=== PATIENT | male | born 1980 | race Caucasian/White ===

== ENCOUNTER → 2020-07-03 | Outpatient (CLI) | payer OTHER | LOC: SC 19:30 | PROVIDERS: ATTEND Internal Medicine Pulmonary Disease | DX: G47.33 Obstructive sleep apnea (adult) (pediatric) (principal) | CPT/HCPCS: 95806 ==

== ENCOUNTER 2020-07-19 16:45 | Outpatient (CLI) | payer OTHER ==
--- NOTE | 2020-07-19 17:19 | SLEEP CARE CONSULTATION ---
Information from patient questionnaire entered by Phong Varma. I have reviewed and concur with the information entered by Phong Varma. This document represents the service I personally performed and the decisions made by , Magda Jay ARNP. History of Present Illness Service Date and Time: 07/19/2020 1645 Initial [place] Sleepiness Scale score: 6 (in 2019) Additional HPI information: TELLY AYALA returns with spouse for follow up and results of the recently performed home sleep study. His HST showed he has mild obstructive sleep apnea with an average AHI of 7.7 and a michael oxygen saturation of 83%. His supine AHI was 9.2 and his non-supine AHI was 5.2. I explained the pathophysiology behind obstructive sleep apnea. We then spent quite a bit of time discussing different treatment options. For mild obstructive sleep apnea, surgery and oral appliance are alternatives to nasal CPAP therapy but in moderate or severe cases, nasal CPAP is the most effective and reliable treatment. Because apnea is primarily in supine position, then positional management therapy could be effective. Methods discussed such as positioning with pillows, using a T-shirt with tennis balls in the back, and shown commercial products that have a pillow format on back to prevent supine sleep. I reviewed the impact of weight changes on sleep apnea and strongly recommended losing weight. After some discussion, the patient opted to go with the nasal CPAP therapy. A manual titration study will be ordered to find optimal pressure with office adjustments. I explained how CPAP machine works with sample devices Resp[employer]ics Dreamstation and ResMed [id number] and what to expect when using the machine. Patient would like to have a titration study to find right pressure before starting therapy. Patient was cautioned about risks of drowsy driving until sleepiness symptoms resolve. Sleep Study - Results Type of Sleep Study: Home sleep study Prior sleep studies: No Polysomnography/Home Sleep Study results: SLEEP TIME AND EFFICIENCY: The sleep study recording began at 09:57:12 PM and ended at 06:57:36 AM. Total recording time was 540.4 minutes. The total sleep time was 446.5 minutes. The sleep efficiency was 82.6 percent. The patient spent 272.6 minutes supine, and spent 173.9 minutes non-supine. The patients own estimate of sleep time was 9.00 hours. RESPIRATORY DATA: The AHI in this report is indexed to sleep time based on actigraphy. The AASM defines this as DARCY. The AHI on this type 3 Home Sleep Study may understate the AHI determined on a type 1 or 2 study, since EEG is not monitored resulting in the inability to score non-desaturating hypopneas. Based on 4% Calculation: The AHI4% calculation of 7.7 per hour of recording time was based on a total of 21 scored apneas and 36 scored hypopneas with 4% desaturations. Supine AHI4%: 9.2 per hour. Non-supine AHI4%: 5.2 per hour. Oxygen Summary: Patient's baseline O2 saturation was 97.2 %. The patient spent 0.6 minutes at an oxygen saturation less than 90%, and 0.1 minutes less than 85%. The desaturation index was 7.3 events per hour sleep time. The lowest saturation was 83.0 %. SNORING: The percent of the study time spent snoring was 0.0 %. The Snoring Count was 0 . The Snoring Index was 0.0 . PULSE RATE REVIEW: The mean heart rate was 53 beats per minute. The rate ranged from a low of 45 to a high of 85 beats per minute. DIAGNOSIS CODE: Obstructive Sleep Apnea G47.33 This patient has mild obstructive sleep apnea occurring more frequently during supine sleep. Allergies and Home Medications Drug allergies reviewed: Yes (NKDA) Home medication list reviewed: Yes (no changes) Review of Systems Review of systems same as previous: Yes (no changes) Physical Exam Height: 5 ft 9.5 in Impression and Plan 1. Obstructive Sleep Apnea-Hypopnea Syndrome, mild, with lowest oxygen saturation of 83%. Obviously this is the cause of the patients symptoms of unrefreshed sleep, and excessive daytime sleepiness. Positive pressure therapy could benefit his anxiety and acid reflux. A manual titration study will be completed if unable to find optimal treatment pressure with office adjustments. Compliance guidelines also reviewed. A copy of compliance guidelines will be given for reference at check out. Because the apnea is more severe supine, I instructed to avoid sleeping supine using pillow positioning until able to start CPAP use. * Titration study ordered. * Attempt to lose weight. * Avoid alcohol consumption near bedtime. * Avoid supine sleep until using CPAP. * The patient is again cautioned about driving until sleepiness completely resolves. * Return after titration study for CPAP setup/follow up. Visit Type: Telehealth Video Video Type: Umthunzi Patient Location: Home Other Participants: Spouse/Significant Other Location of Provider: Office Patient agrees and consents to this telehealth visit type: Yes Patient agrees to have their insurance billed: Yes Time Spent with Patient (minutes): 17 Provider Statement: I spent 100% of the Telehealth Video Call with the patient with greater than 50% spent counseling the patient and coordination of care.
== END 2020-07-19 16:46 | disposition home or self-care (01) ==
LOC: SC 16:45
PROVIDERS: ATTEND Nurse Practitioner Family
DX: G47.33 Obstructive sleep apnea (adult) (pediatric) (principal)

== ENCOUNTER 2020-11-23 15:52 | Outpatient (CLI) | payer OTHER ==
--- NOTE | 2020-11-23 15:29 | SLEEP CARE CONSULTATION ---
Information from patient questionnaire entered by Kaity Umana. I have reviewed and concur with the information entered by Kaity Umana. This document represents the service I personally performed and the decisions made by me, Magda Jay ARNP. History of Present Illness Service Date and Time: 11/23/2020 1552 Previous diagnosis: Mild, Obstructive Sleep Apnea-Hypopnea Syndrome AHI: 7.7 (in 2019) Reason for follow up: first compliance Equipment type: CPAP Equipment obtained from: [facility] (got initial supplies) Prior sleep studies: Yes Year and Where: 2019 - [facility] Type of Sleep Study: Home sleep study HPI additional information: TELLY AYALA was diagnosed to have mild, AHI 7.7, obstructive sleep apnea- hypopnea syndrome and returns via Telehealth visit today for CPAP therapy first compliance follow-up. He has been being worked up for an issue with his diaphragm that wakes him up every few minutes gasping for air. He has had a full workup and so far no serious problem has been found. He was placed on amitriptyline nightly and this has nearly resolved his "musculoskeletal problem" between his xiphoid process/rib area and diaphragm. He has not been using the CPAP machine because he cannot breathe with it when he is gasping every few minutes. He has not tried wearing it while taking the amitriptyline. He is feeling a lot better since being able to sleep through the night while taking the amitriptyline and is not sure he really has sleep apnea. CPAP Compliance Data - Data Reviewed with Patient Current pressure setting (cmH2O): 4-15 (5.7 median, 7.5 average, 8.4 max) Average residual AHI: 0.8 (used Aug 24) Subjective Patient concerns: reports: other (diaphragm spasms causing him to wake up gasping for air every few minutes) Initial [place] Sleepiness Scale score: 6 (in 2019) Current [place] Sleepiness Scale score: 5 Allergies and Home Medications Home medication list reviewed: Yes (no changes) Review of Systems Review of systems same as previous: Yes (no changes) Physical Exam Vital signs obtained and entered by: Telehealth visit to limit exposure during Covid pandemic Height: 5 ft 9.5 in Impression and Plan 1. Obstructive Sleep Apnea-Hypopnea Syndrome, mild, with poor treatment compliance and good apnea control when used. Patient only used his CPAP therapy for a few days since obtaining the machine. He is not sure he has sleep apnea as outlined previously. He would like to discontinue CPAP at this time and just use positional therapy since his AHI non-supine was 5.2 on his HST I think this is a good idea without him being on the CPAP therapy. I discuss ordering another sleep study and having him take his amitriptyline to verify if he does have sleep apnea and its severity when he is able to sleep without waking up gasping. He voiced understanding and agreement to proceed if his insurance would cover the new study. * Discontinue CPAP therapy * Positional therapy while not on other therapy * Reorder HST to verify diagnosis while patient is taking the amitriptyline * Return for follow up after sleep study completed, or sooner if concerns arise Counseling Topics: Weight loss health impact Visit Type: Telehealth Video Video Type: Doximity Patient Location: Home Location of Provider: Office Patient agrees and consents to this telehealth visit type: Yes Patient agrees to have their insurance billed: Yes Time Spent with Patient (minutes): 24 Provider Statement: I spent 100% of the Telehealth Video Call with the patient with greater than 50% spent counseling the patient and coordination of care.
== END 2020-11-23 15:53 | disposition home or self-care (01) ==
LOC: SC 15:52
PROVIDERS: ATTEND Nurse Practitioner Family
DX: G47.33 Obstructive sleep apnea (adult) (pediatric) (principal)